=== PATIENT | female | born 1995 | race American Indian/Alaskan Native ===

== ENCOUNTER 2021-01-08 11:29 | Emergency (ER) | payer MEDICAID ==
[2021-01-08 13:52] VITALS: BP 120/91
[2021-01-08] MEDS ORDERED: IBUPROFEN 800 MG TAB PO ONE (15:01)
[2021-01-08] MEDS ORDERED: ACETAMINOPHEN 500 MG TAB PO ONE (15:01)
--- NOTE | 2021-01-08 15:04 | Emergency Department Report ---
ED General Adult HPI - General Chief complaint: Skin/Abscess/Foreign Body Stated complaint: BIT ON BUTTOCKS Time Seen by Provider: 01/08/21 14:28 Source: patient Mode of arrival: Ambulatory Limitations: No Limitations - History of Present Illness Initial comments: 25-year-old female patient presents to emergency department with complaints of pain to her left buttock starting 2 days ago. Patient suspects she may have been "bitten by something." No history of similar symptoms. No history of MRSA. No preceding fall, trauma, or injury. Denies fever, chills, nausea, vomiting, abdominal pain, diarrhea, purulent drainage. Denies all other complaints at this time. - Related Data Previous Rx's Medication Instructions Recorded Last Taken Type cephALEXin [Keflex] 500 mg PO TID 7 Days #21 cap 01/08/21 Unknown Rx Allergies Allergy/AdvReac Type Severity Reaction Status Date / Time No Known Allergies Allergy Unverified 01/08/21 13:47 ED Review of Systems ROS: Stated complaint: BIT ON BUTTOCKS Other details as noted in HPI Other: GENERAL: Negative for fever, chills, weight change, anorexia, fatigue. ENT: Negative for ear pain, difficulty hearing, sore throat, nasal congestion, epistaxis. CARDIOVASCULAR: Negative for chest pain, palpitations, lower extremity swelling. PULMONARY: Negative for cough, dyspnea, wheezing, orthopnea, cyanosis. GASTROINTESTINAL: Negative for abdominal pain, nausea, vomiting, diarrhea, constipation. MUSCULOSKELETAL: Positive for buttock pain. NEUROLOGICAL: Negative for headache, seizure, syncope, paresthesias, weakness. HEMATOLOGICAL: Negative for hemoptysis, hematemesis, hematochezia, hematuria. PSYCHIATRIC: Negative for hallucinations, suicidal ideation, homicidal ideation, anxiety, depression. ED Past Medical Hx - Past Medical History Previous Medical History?: No - Surgical History Past Surgical History?: No - Medications Home Medications: Home Medications Medication Instructions Recorded Confirmed Last Taken Type cephALEXin [Keflex] 500 mg PO TID 7 Days #21 cap 01/08/21 Unknown Rx ED Physical Exam - General Limitations: No Limitations - Other Other exam information: General: Awake, appropriately interactive, no acute distress. Neck: Supple. Full range of motion intact. Cardiovascular: Normal peripheral perfusion. Pulmonary: No respiratory distress. Patient is speaking normally without use of accessory muscles. 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 Tenderness to palpation along the superior aspect of the left buttock with minimal induration. No overlying warmth or e rythema. No crepitus. No fluctuance or purulent drainage. No necrosis. Pain is appropriately proportional to exam findings. No gluteal cleft involvement. Neurological: No facial asymmetry. Speech is clear. Follows commands. Patient is alert and oriented. Musculoskeletal: Moves all four extremities spontaneously with normal range of motion. Psych: Cooperative. Appropriate mood and affect. ED Course Vital Signs 01/08/21 13:51 Temperature 98.7 F Pulse Rate 127 H Respiratory 18 Rate Blood Pressure 120/91 [Right] O2 Sat by Pulse 97 Oximetry ED Medical Decision Making - Medical Decision Making Differential diagnosis including but not limited to: cellulitis, abscess, nec rotizing soft tissue infection, pilonidal disease, folliculitis On reevaluation, patient remains stable and symptoms have improved. Tachycardia resolved after analgesics. Repeat heart rate 86 bpm. Pain is appropriately proportional to exam findings without clinical evidence to suggest systemic bacterial infection warranting further diagnostic work-up on an emergent basis at this time. Patient will be discharged home with prescription for Keflex per current IDSA non-purulent cellulitis guidelines and referred to primary care provider for close outpatient follow-up. Patient expressed understanding and is agreeable to plan of care. Strict return precautions provided. Repeat exam is unremarkable and benign. History, exam, diagnostic testing, and current condition do not suggest worrisome pathology to warrant further testing, continued ED treatment, admission, or surgical evaluation at this point. Given the low probability of a significant medical illness, it would be more likely to result in harm than benefit to perform further testing at this stage. Discussed findings, presumptive diagnosis, need for follow-up and specific signs/symptoms that should prompt immediate return to the emergency department. Instructions were explained in detail to the patient in addition to giving written discharge information. Patient expressed understanding and was given the opportunity to ask questions, all of which were satisfactorily answered prior to discharge home. Critical care attestation.: If time is entered above; I have spent that time in minutes in the direct care of this critically ill patient, excluding procedure time. ED Disposition Clinical Impression: Cellulitis of buttock, left Disposition: 01 HOME / SELF CARE / HOMELESS Is pt being admited?: No Does the pt Need Aspirin: No Condition: Stable Instructions: Cellulitis, Adult, [id number] Additional Instructions: Take Tylenol every 4 hours and Motrin every 8 hours as needed for pain. Take Keflex with food as directed. Apply warm compresses to affected area as needed. The area may begin to drain on its own. Do not attempt to forcefully express drainage from the area. Follow-up with primary care provider this week. Call Sunday to schedule an appointment. See referral information below. Return to the emergency department immediately for new or worsening symptoms. Prescriptions: cephALEXin [Keflex] 500 mg PO TID 7 Days #21 cap Referrals: MYKE MARTINEZ MD [Staff Physician] - 3-5 Days [facility] [Provider Group] - 3-5 Days Forms: Work/School Release Form(ED) Time of Disposition: 15:45
== END 2021-01-08 15:56 | disposition home or self-care (01) ==
LOC: ED 11:29
DX: L03.317 Cellulitis of buttock (principal); Z79.899 Other long term (current) drug therapy
CPT/HCPCS: 99283

== ENCOUNTER 2021-08-20 19:37 | Emergency (ER) | payer MEDICAID ==
[2021-08-20 20:30] LABS: Bacteria,Urine 2+ /HPF (Negative); Bilirubin,Urine NEG (Negative); Blood,Urine NEG (Negative); Color,Urine Yellow (Yellow); Mucus,Urine FEW /HPF; Urobilinogen,Urine < 2.0 mg/dL (<2.0)
[2021-08-20] MEDS ORDERED: LIDOCAINE (1%) 10 MG/1 ML VIAL 20 ML MDV INFILTRATI ONE (20:35)
--- NOTE | 2021-08-20 21:06 | Emergency Department Report ---
- General Chief complaint: Skin/Abscess/Foreign Body Stated complaint: BUMP ON PRIVACY AREA Source: patient Mode of arrival: Ambulatory Limitations: No Limitations - History of Present Illness Initial comments: 26 female to the ED with abscess to the right labia x2 days. Patient states that she has been using warm compress to try to expel the abscess but unsuccessful. Patient has been stating of burning with urination x2 days. Patient is alert and oriented x2, patient denies any fever or chills at present time. No acute distress noted. No ill appearance noted. Patient states that she has had abscess in the past. She denies any medical history at present but is currently hypertension, she states that she has been told that her blood pressure run high but do not take any medication . complaint: rash Onset/Timin -: days(s) Severity scale (0 -10): 8 Quality: aching Consistency: constant Associated symptoms: denies other symptoms - Related Data Previous Rx's Medication Instructions Recorded Last Taken Type cephALEXin [Keflex] 500 mg PO TID 7 Days #21 cap 01/08/21 Unknown Rx Ibuprofen [Motrin] 800 mg PO Q8HR PRN 15 Days #30 08/20/21 Unknown Rx tablet Sulfamethoxazole/Trimethoprim 1 each PO BID 10 Days #20 tab 08/20/21 Unknown Rx [Bactrim DS TAB] Allergies Allergy/AdvReac Type Severity Reaction Status Date / Time No Known Allergies Allergy Unverified 01/08/21 13:47 Abscess Boil HPI - HPI Chief Complaint: Skin/Abscess/Foreign Body Stated Complaint: BUMP ON PRIVACY AREA Home Medications: Previous Rx's Medication Instructions Recorded Last Taken Type cephALEXin [Keflex] 500 mg PO TID 7 Days #21 cap 01/08/21 Unknown Rx Ibuprofen [Motrin] 800 mg PO Q8HR PRN 15 Days #30 08/20/21 Unknown Rx tablet Sulfamethoxazole/Trimethoprim 1 each PO BID 10 Days #20 tab 08/20/21 Unknown Rx [Bactrim DS TAB] Allergies/Adverse Reactions: Allergies Allergy/AdvReac Type Severity Reaction Status Date / Time No Known Allergies Allergy Unverified 01/08/21 13:47 ED Review of Systems ROS: Stated complaint: BUMP ON PRIVACY AREA Other details as noted in HPI Constitutional: denies: chills, fever Eyes: denies: eye pain, eye discharge, vision change ENT: denies: ear pain, throat pain Respiratory: denies: cough, shortness of breath, wheezing Cardiovascular: denies: chest pain, palpitations Endocrine: no symptoms reported Gastrointestinal: denies: abdominal pain, nausea, diarrhea Genitourinary: denies: urgency, dysuria, discharge Musculoskeletal: denies: back pain, joint swelling, arthralgia Skin: rash, lesions Neurological: denies: headache, weakness, paresthesias Psychiatric: denies: anxiety, depression Hematological/Lymphatic: denies: easy bleeding, easy bruising ED Past Medical Hx - Medications Home Medications: Home Medications Medication Instructions Recorded Confirmed Last Taken Type cephALEXin [Keflex] 500 mg PO TID 7 Days #21 cap 01/08/21 Unknown Rx Ibuprofen [Motrin] 800 mg PO Q8HR PRN 15 Days #30 08/20/21 Unknown Rx tablet Sulfamethoxazole/Trimethoprim 1 each PO BID 10 Days #20 tab 08/20/21 Unknown Rx [Bactrim DS TAB] ED Physical Exam - General Limitations: No Limitations General appearance: alert, in no apparent distress - Head Head exam: Present: atraumatic, normocephalic - Eye Eye exam: Present: normal appearance - ENT ENT exam: Present: mucous membranes moist - Neck Neck exam: Present: normal inspection - Respiratory Respiratory exam: Present: normal lung sounds bilaterally. Absent: respiratory distress - Cardiovascular Cardiovascular Exam: Present: regular rate, normal rhythm. Absent: systolic murmur, diastolic murmur, rubs, gallop - GI/Abdominal GI/Abdominal exam: Present: soft, normal bowel sounds - Extremities Exam Extremities exam: Present: normal inspection - Back Exam Back exam: Present: normal inspection - Neurological Exam Neurological exam: Present: alert, oriented X3 - Psychiatric Psychiatric exam: Present: normal affect, normal mood - Skin Skin exam: Present: warm, dry, intact, normal color. Absent: rash ED Course Vital Signs 08/20/21 08/20/21 19:47 21:29 Temperature 98.6 F Pulse Rate 118 H 107 H Respiratory 16 12 Rate Blood Pressure 158/100 Blood Pressure 162/101 [Right] O2 Sat by Pulse 100 100 Oximetry - I & D Right Genitals Type of Procedure: Simple Site: labia Blade Size: 11 I & D Procedure: betadine prep Progress: expelled drainage well and tolerated well . ED Medical Decision Making - Medical Decision Making 26 female to the ED with abscess to the right labia x2 days. Patient states that she has been using warm compress to try to expel the abscess but unsuccessful. Patient has been stating of burning with urination x2 days. Patient is alert and oriented x2, patient denies any fever or chills at present time. No acute distress noted. No ill appearance noted. Patient states that she has had abscess in the past. She denies any medical history at present but is currently hypertension, she states that she has been told that her blood pressure run high but do not take any medication . Physical examination show palpable round tender nodule noted to the right labia. Incision and drainage procedure performed successful. Patient is to follow-up with primary care for asymptomatic hypertension. Urinalysis lead positive for UTI Abnormal Lab Results 08/20/21 Unknown Urine Color Yellow Urine Turbidity Cloudy Urine pH 7.0 Ur Specific [place] 1.027 Urine Protein 30 mg/dl Urine Glucose (UA) Neg Urine Ketones Neg Urine Blood Neg Urine Nitrite Neg Urine Bilirubin Neg Urine Urobilinogen < 2.0 Ur Leukocyte Esterase Sm Urine WBC (Auto) 87.0 H Urine RBC (Auto) 3.0 U Epithel Cells (Auto) 109.0 H Urine Bacteria (Auto) 2+ Urine Mucus Few Rechecked the patient is resting quietly quietly and comfortable and feeling better. I discussed the results of diagnostic study, my clinical impression and the plan for further treatment with the patient. Patient agrees with plan and discharge at this present time. All question addressed. I have given the patient instruction regarding a diagnosis ,expectation ,follow- up and return precaution. I explained to the patient that emergent condition may arise and to return to the ED for new worsen and any new persisting condition. I have explained the importance of following up with the primary care physician or referral physician listed below has instructed. The patient verbalized understanding of discharge instruction. Critical care attestation.: If time is entered above; I have spent that time in minutes in the direct care of this critically ill patient, excluding procedure time. ED Disposition Clinical Impression: Abscess, Acute urinary tract infection Disposition: HOME / SELF CARE / HOMELESS Is pt being admited?: No Does the pt Need Aspirin: No Condition: Stable Instructions: Skin Abscess, [id number], Urinary Tract Infection, Adult, [id number] Additional Instructions: Follow-up with your primary care doctor for hypertension Medication has prescribed Return turn to the ED for any worsening symptom Prescriptions: Sulfamethoxazole/Trimethoprim [Bactrim DS TAB] 1 each PO BID 10 Days #20 tab Ibuprofen [Motrin] 800 mg PO Q8HR PRN 15 Days #30 tablet PRN Reason: Pain, Moderate (4-6) Referrals: PRIMARY CAREMD [Primary Care Provider] - 3-5 Days HUMA MERCER MD [Referring] - 3-5 Days Forms: Work/School Release Form(ED)
[2021-08-20 21:30] VITALS: BP 162/101
== END 2021-08-20 21:41 | disposition home or self-care (01) ==
LOC: ED 19:37
DX: N76.4 Abscess of vulva (principal); N39.0 Urinary tract infection, site not specified
CPT/HCPCS: 10060; 81001; 87086; 99283; J3490

== ENCOUNTER 2022-01-09 11:38 | Emergency (ER) | payer MEDICAID ==
[2022-01-09 11:43] VITALS: BP 101/71
[2022-01-09] MEDS ORDERED: SODIUM CHLORIDE 0.9% 1000 ML 1,000 ML IV ONE (12:59)
--- NOTE | 2022-01-09 13:03 | Emergency Department Report ---
ED General Adult HPI - General Chief complaint: Psych Stated complaint: ALTERED MENTAL STATUS Time Seen by Provider: 01/09/22 12:18 Source: patient Mode of arrival: Ambulatory Limitations: No Limitations - History of Present Illness Initial comments: Patient presents to the emergency department via private vehicle for altered mental status. The patient was brought by her mom because the patient attempted to jump out of [place] The mother also stated that the patient is confused and appears to be anxious. Patient is very withdrawn and would not answer questions but states she has a history of anxiety. -: Sudden Severity scale (0 -10): 0 Consistency: constant Improves with: none Worsens with: none Associated Symptoms: denies other symptoms Treatments Prior to Arrival: none - Related Data Previous Rx's Medication Instructions Recorded Last Taken Type cephALEXin [Keflex] 500 mg PO TID 7 Days #21 cap 01/08/21 Unknown Rx Ibuprofen [Motrin] 800 mg PO Q8HR PRN 15 Days #30 08/20/21 Unknown Rx tablet Sulfamethoxazole/Trimethoprim 1 each PO BID 10 Days #20 tab 08/20/21 Unknown Rx [Bactrim DS TAB] Allergies Allergy/AdvReac Type Severity Reaction Status Date / Time No Known Allergies Allergy Unverified 01/08/21 13:47 ED Review of Systems ROS: Stated complaint: ALTERED MENTAL STATUS Other details as noted in HPI Comment: Unobtainable due to pts medical conditions (Patient is not answering questions thus not able to complete a review of systems) ED Past Medical Hx - Medications Home Medications: Home Medications Medication Instructions Recorded Confirmed Last Taken Type cephALEXin [Keflex] 500 mg PO TID 7 Days #21 cap 01/08/21 Unknown Rx Ibuprofen [Motrin] 800 mg PO Q8HR PRN 15 Days #30 08/20/21 Unknown Rx tablet Sulfamethoxazole/Trimethoprim 1 each PO BID 10 Days #20 tab 08/20/21 Unknown Rx [Bactrim DS TAB] ED Physical Exam - General Limitations: No Limitations General appearance: alert, in no apparent distress, other (The patient is withdrawn and does not answer questions.) - Head Head exam: Present: atraumatic, normocephalic - Eye Eye exam: Present: normal appearance - ENT ENT exam: Present: mucous membranes moist - Neck Neck exam: Present: normal inspection - Respiratory Respiratory exam: Present: normal lung sounds bilaterally. Absent: respiratory distress - Cardiovascular Cardiovascular Exam: Present: normal rhythm, tachycardia. Absent: systolic murmur, diastolic murmur, rubs, gallop - GI/Abdominal GI/Abdominal exam: Present: soft, distended, normal bowel sounds. Absent: tenderness - Extremities Exam Extremities exam: Present: normal inspection - Back Exam Back exam: Present: normal inspection - Neurological Exam Neurological exam: Present: alert, oriented X3, CN II-XII intact. Absent: motor sensory deficit - Psychiatric Psychiatric exam: Present: normal affect, normal mood - Skin Skin exam: Present: warm, dry, intact, normal color. Absent: rash ED Course Vital Signs 01/09/22 11:39 Temperature 98.2 F Pulse Rate 128 H Respiratory 24 Rate Blood Pressure 101/71 [Left] O2 Sat by Pulse 99 Oximetry ED Medical Decision Making - Lab Data Result diagrams: 01/09/22 13:06 01/09/22 13:06 Lab Results 01/09/22 01/09/22 01/09/22 Range/Units 13:06 13:06 13:06 WBC 7.1 (4.5-11.0) K/mm3 RBC 4.70 (3.65-5.03) M/mm3 Hgb 10.8 (10.1-14.3) gm/dl Hct 36.7 (30.3-42.9) % MCV 78 L (79-97) fl MCH 23 L (28-32) pg MCHC 30 (30-34) % RDW 17.6 H (13.2-15.2) % Plt Count 405 (140-440) K/mm3 Lymph % (Auto) 16.5 (13.4-35.0) % [place] % (Auto) 9.0 H (0.0-7.3) % Eos % (Auto) 0.0 (0.0-4.3) % Baso % (Auto) 0.4 (0.0-1.8) % Lymph # (Auto) 1.2 (1.2-5.4) K/mm3 [place] # (Auto) 0.6 (0.0-0.8) K/mm3 Eos # (Auto) 0.0 (0.0-0.4) K/mm3 Baso # (Auto) 0.0 (0.0-0.1) K/mm3 Seg Neutrophils % 74.1 H (40.0-70.0) % Seg Neutrophils # 5.2 (1.8-7.7) K/mm3 Sodium 137 (137-145) mmol/L Potassium 3.8 (3.6-5.0) mmol/L Chloride 99.0 (98-107) mmol/L Carbon Dioxide 21 L (22-30) mmol/L Anion Gap 21 mmol/L BUN 5 L (7-17) mg/dL Creatinine 0.7 (0.6-1.2) mg/dL Estimated GFR > 60 ml/min BUN/Creatinine Ratio 7 % Glucose 89 (65-100) mg/dL Calcium 9.6 (8.4-10.2) mg/dL TSH (0.270-4.200) mlU/mL Free T4 (0.76-1.46) ng/dL HCG, Qual (Negative) Urine Color (Yellow) Urine Turbidity (Clear) Specific [place] (Man) (1.003-1.030) Ur Protein (Man) (Negative) mg/dL Ur Ketones (Man) (Negative) Urine Bilirubin (Man) (Negative) Urine WBC (Auto) (0.0-6.0) /HPF Urine RBC (Auto) (0.0-6.0) /HPF U Epithel Cells (Auto) (0-13.0) /HPF Urine Bacteria (Auto) (Negative) /HPF Urine RBC (Manual) (Negative) Hyaline Casts /LPF Urine Mucus /HPF Salicylates < 0.3 L (2.8-20.0) mg/dL Urine Opiates Screen Urine Methadone Screen Acetaminophen (10.0-30.0) ug/mL Ur Barbiturates Screen Ur Phencyclidine Scrn Ur Amphetamines Screen U Benzodiazepines Scrn Urine Cocaine Screen U Marijuana (THC) Screen Drugs of Abuse Note 01/09/22 01/09/22 01/09/22 Range/Units 13:06 13:06 13:06 WBC (4.5-11.0) K/mm3 RBC (3.65-5.03) M/mm3 Hgb (10.1-14.3) gm/dl Hct (30.3-42.9) % MCV (79-97) fl MCH (28-32) pg MCHC (30-34) % RDW (13.2-15.2) % Plt Count (140-440) K/mm3 Lymph % (Auto) (13.4-35.0) % [place] % (Auto) (0.0-7.3) % Eos % (Auto) (0.0-4.3) % Baso % (Auto) (0.0-1.8) % Lymph # (Auto) (1.2-5.4) K/mm3 [place] # (Auto) (0.0-0.8) K/mm3 Eos # (Auto) (0.0-0.4) K/mm3 Baso # (Auto) (0.0-0.1) K/mm3 Seg Neutrophils % (40.0-70.0) % Seg Neutrophils # (1.8-7.7) K/mm3 Sodium (137-145) mmol/L Potassium (3.6-5.0) mmol/L Chloride (98-107) mmol/L Carbon Dioxide (22-30) mmol/L Anion Gap mmol/L BUN (7-17) mg/dL Creatinine (0.6-1.2) mg/dL Estimated GFR ml/min BUN/Creatinine Ratio % Glucose (65-100) mg/dL Calcium (8.4-10.2) mg/dL TSH 0.753 (0.270-4.200) mlU/mL Free T4 1.32 (0.76-1.46) ng/dL HCG, Qual Negative (Negative) Urine Color (Yellow) Urine Turbidity (Clear) Specific [place] (Man) (1.003-1.030) Ur Protein (Man) (Negative) mg/dL Ur Ketones (Man) (Negative) Urine Bilirubin (Man) (Negative) Urine WBC (Auto) (0.0-6.0) /HPF Urine RBC (Auto) (0.0-6.0) /HPF U Epithel Cells (Auto) (0-13.0) /HPF Urine Bacteria (Auto) (Negative) /HPF Urine RBC (Manual) (Negative) Hyaline Casts /LPF Urine Mucus /HPF Salicylates (2.8-20.0) mg/dL Urine Opiates Screen Urine Methadone Screen Acetaminophen 5.0 L (10.0-30.0) ug/mL Ur Barbiturates Screen Ur Phencyclidine Scrn Ur Amphetamines Screen U Benzodiazepines Scrn Urine Cocaine Screen U Marijuana (THC) Screen Drugs of Abuse Note 01/09/22 01/09/22 Range/Units Unknown Unknown WBC (4.5-11.0) K/mm3 RBC (3.65-5.03) M/mm3 Hgb (10.1-14.3) gm/dl Hct (30.3-42.9) % MCV (79-97) fl MCH (28-32) pg MCHC (30-34) % RDW (13.2-15.2) % Plt Count (140-440) K/mm3 Lymph % (Auto) (13.4-35.0) % [place] % (Auto) (0.0-7.3) % Eos % (Auto) (0.0-4.3) % Baso % (Auto) (0.0-1.8) % Lymph # (Auto) (1.2-5.4) K/mm3 [place] # (Auto) (0.0-0.8) K/mm3 Eos # (Auto) (0.0-0.4) K/mm3 Baso # (Auto) (0.0-0.1) K/mm3 Seg Neutrophils % (40.0-70.0) % Seg Neutrophils # (1.8-7.7) K/mm3 Sodium (137-145) mmol/L Potassium (3.6-5.0) mmol/L Chloride (98-107) mmol/L Carbon Dioxide (22-30) mmol/L Anion Gap mmol/L BUN (7-17) mg/dL Creatinine (0.6-1.2) mg/dL Estimated GFR ml/min BUN/Creatinine Ratio % Glucose (65-100) mg/dL Calcium (8.4-10.2) mg/dL TSH (0.270-4.200) mlU/mL Free T4 (0.76-1.46) ng/dL HCG, Qual (Negative) Urine Color Yellow (Yellow) Urine Turbidity Hazy (Clear) Specific [place] (Man) 1.030 (1.003-1.030) Ur Protein (Man) 2+ (Negative) mg/dL Ur Ketones (Man) 4+ (Negative) Urine Bilirubin (Man) Small (Negative) Urine WBC (Auto) 21.0 H (0.0-6.0) /HPF Urine RBC (Auto) 33.0 (0.0-6.0) /HPF U Epithel Cells (Auto) 62.0 H (0-13.0) /HPF Urine Bacteria (Auto) 1+ (Negative) /HPF Urine RBC (Manual) Negative (Negative) Hyaline Casts 1 /LPF Urine Mucus 2+ /HPF Salicylates (2.8-20.0) mg/dL Urine Opiates Screen Negative Urine Methadone Screen Negative Acetaminophen (10.0-30.0) ug/mL Ur Barbiturates Screen Negative Ur Phencyclidine Scrn Negative Ur Amphetamines Screen Negative U Benzodiazepines Scrn Negative Urine Cocaine Screen Negative U Marijuana (THC) Screen Negative Drugs of Abuse Note Disclamer - Medical Decision Making Patient evaluated by mental health and upon their evaluation it was discovered t hat the patient was having illogical thoughts and was very delusional. 1013 applied Medically cleared Awaiting placement Critical care attestation.: If time is entered above; I have spent that time in minutes in the direct care of this critically ill patient, excluding procedure time. ED Disposition Clinical Impression: Delusions, Bacteriuria Disposition: [address] [place] [address] Is pt being admited?: No Does the pt Need Aspirin: No Condition: Stable
[2022-01-09 13:36] LABS: Basophils % (Auto) 0.4 % (0.0-1.8); Lymphocytes # (Auto) 1.2 K/mm3 (1.2-5.4); Lymphocytes % (Auto) 16.5 % (13.4-35.0); Mean Corpuscular HGB Conc 30 % (30-34); Mean Corpuscular Volume 78 fl (79-97); Monocytes # (Auto) 0.6 K/mm3 (0.0-0.8); Platelet Count 405 K/mm3 (140-440); Red Cell Distribution Width 17.6 % (13.2-15.2)
[2022-01-09 13:55] LABS: Blood Urea Nitrogen 5 mg/dL (7-17); Calcium 9.6 mg/dL (8.4-10.2); Hematocrit 36.7 % (30.3-42.9); Hemoglobin 10.8 gm/dl (10.1-14.3); Hemolysis Index 12
[2022-01-09 14:03] LABS: BUN/Creatinine Ratio 7
[2022-01-09 14:11] LABS: Free T4 (Free Thyroxine) 1.32 ng/dL (0.76-1.46)
--- NOTE | 2022-01-09 15:17 | Cat Scan Report ---
CT head/brain wo con INDICATION: AMS. TECHNIQUE: Routine CT head. All CT scans at this location are performed using CT dose reduction for A PERRY by means of automated exposure control. COMPARISON: None. FINDINGS: Intracranial: Schroeder-white matter differentiation is maintained. No intracranial hemorrhage. No extra a xial collection. No hydrocephalus. No herniation. Appearance of sella. Sinuses: Paranasal sinuses and mastoid air cells are essentially clear. Orbits: Globes are intact. Calvarium: No acute fracture. IMPRESSION: 1. No acute intracranial abnormality. 2. This is a common finding seen in normal asymptomatic individuals. However, findings can be seen as sociated with pseudotumor cerebri. Correlate clinically. Signer Name: Kris Granda MD Signed: 01/09/2022 3:13 PM Workstation Name: [id number]
[2022-01-09 15:44] LABS: Bacteria,Urine 1+ /HPF (Negative); Hyaline Casts,Urine 1 /LPF; Mucus,Urine 2+ /HPF
[2022-01-09 15:54] LABS: Amphetamine Screen,Urine Negative; Benzodiazepines Screen,Urine Negative; Cannabinoid Screen,Urine Negative; Cocaine Screen,Urine Negative; Methadone Screen,Urine Negative; Opiate Screen,Urine Negative
[2022-01-09 15:59] LABS: Color,Urine Yellow (Yellow)
[2022-01-09] MEDS ORDERED: cephALEXin ORAL LIQD 500 MG/10 ML ORAL LIQD PO ONE (17:59)
[2022-01-09] MEDS ORDERED: cephALEXin 500 MG CAP PO ONE (19:00)
[2022-01-09] MEDS ORDERED: ZIPRASIDONE 20 MG CAP PO ONE (23:45)
[2022-01-10] MEDS ORDERED: cephALEXin 500 MG CAP PO ONE (00:23)
== END 2022-01-10 15:19 ==
LOC: EEVIPCON 11:38 → ED 11:38
DX: F22 Delusional disorders (principal); R82.71 Bacteriuria
CPT/HCPCS: 36415; 70450; 80048; 80307; 81001; 84439; 84443; 84703; 85025; 87086; 96360; 99284; J7030; 80320; G0480